=== PATIENT | male | born 1980 | race Two or more races ===

== ENCOUNTER 2019-01-16 16:53 | Emergency (ER) | payer MEDICAID, OTHER ==
[~2019-01-16] VITALS: Ht 182.9 cm; Wt 122.0 kg
[2019-01-16 16:53] VITALS: BP 119/74
[~2019-01-16 16:53] MED LIST: ALBU-136 IH; FLUT1DSK19 IH
--- NOTE | 2019-01-16 16:59 | NUR ---
PT AMBULATED TO BED
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
[2019-01-16] MEDS ORDERED: KETOROLAC 30 MG/ML VIAL IM ONE (17:15)
[2019-01-16] MEDS ORDERED: CYCLOBENZAPRINE 10 MG TAB PO ONE (17:15)
[2019-01-16 18:03] VITALS: BP 129/78
--- NOTE | 2019-01-16 18:03 | NUR ---
Patient discharged with v/s stable. Written and verbal after care instructions given and explained. Patient alert, oriented and verbalized understanding of instructions. Ambulatory with steady gait. All questions addressed prior to discharge. ID band removed. Patient advised to follow up with PMD. Rx of Ibuprofen and Flexeril given. Patient educated on indication of medication including possible reaction and side effects. Opportunity to ask questions provided and answered.
== END 2019-01-16 18:03 | disposition home or self-care (01) ==
LOC: MED 16:53
DX: S16.1XXA Strain of muscle, fascia and tendon at neck level, initial encounter (principal); S80.02XA Contusion of left knee, initial encounter; J45.909 Unspecified asthma, uncomplicated; I10 Essential (primary) hypertension; Z79.899 Other long term (current) drug therapy; V89.2XXA Person injured in unspecified motor-vehicle accident, traffic, initial encounter; Y93.89 Activity, other specified; Y92.411 Interstate highway as the place of occurrence of the external cause; Y99.8 Other external cause status
CPT/HCPCS: 72050; 73562; 96372; 99283; J1885